=== PATIENT | female | born 1975 | race Caucasian/White ===

== ENCOUNTER → 2016-10-06 | Outpatient (CLI) | payer BC ==
[~2016-10-06] MED LIST: CETI10TA84 PO; CHOL100010 PO; CYAN10005 PO; DILT120C PO
[2016-10-06 12:26] LABS: BASO % 0.2 %; BASO ABS # 0.02 K/uL (0-0.2); COMPLETE YES; EOS % 4.3 %; IG% 0.2 %; LYMPH % 14.7 %; LYMPH ABS # 1.24 K/uL (1.2-3.4); MEAN CELL VOLUME 87.7 fL (80-100); MEAN CORPUSCULAR HGB CONC 34.3 g/dl (32-36); MEAN PLATELET VOLUME 9.4 fL (7.4-10.4); MONO % 5.9 %; NEUT % 74.7 %; PLATELET COUNT 420 K/uL (130-400); RED BLOOD COUNT 4.56 M/uL (4.2-5.4); WHITE BLOOD COUNT 8.42 K/uL (4.8-10.8)
[2016-10-06 12:44] LABS: ALT/SGPT 19 U/L (12-78); BLOOD UREA NITROGEN 7 mg/dl (7-18); BUN/CREATININE RATIO 11.6 (10-20); CALCIUM 8.8 mg/dl (8.5-10.1); CARBON DIOXIDE 26 mmol/L (21-32); CHLORIDE 105 mmol/L (98-107); CHOLESTEROL 167 mg/dl (0-200); CREATININE 0.63 mg/dl (0.60-1.20); GLUCOSE 89 mg/dl (70-99); POTASSIUM 3.7 mmol/L (3.5-5.1); SODIUM 139 mmol/L (136-145); TRIGLYCERIDES 204 mg/dl (0-150); VERY LOW DENSITY LIPOPROT CALC 41 mg/dl
[2016-10-06 12:54] LABS: ALKALINE PHOSPHATASE 91 U/L (45-117); AST/SGOT 15 U/L (15-37); CHOLESTEROL/HDL RATIO 5.4; HDL CHOLESTEROL 31 mg/dl; LDL CHOLESTEROL CALCULATED 95 mg/dl
--- NOTE | 2016-10-13 09:09 | CODING QUERY MEDICAL NECESSITY ---
CQSUPPORTING DIAGNOSIS NEEDED A supporting diagnosis is required for the test/procedure performed on this patient in order for us to be reimbursed by the patient's insurance. Please provide a supporting diagnosis for the following test/procedure listed below next to the test name along with your signature. *If there is no additional diagnosis for this patient that would support the following test/procedure please document that below next to the test/procedure. Test(s)/Procedure(s) that require a supporting diagnosis: DOS 10/06/16 VITAMIN D TEST VITAMIN B12 TEST Provider Signature: Date: Thank you Aletha Nelson Health Information Management Once completed, please kindly fax back to [phone] For questions please call [phone]
== END | disposition home or self-care (01) ==
LOC: C.LABPBG 07:35
PROVIDERS: ATTEND Neuromusculoskeletal Medicine & OMM
DX: Z00.00 Encounter for general adult medical examination without abnormal findings (principal); E55.9 Vitamin D deficiency, unspecified; E53.8 Deficiency of other specified B group vitamins

== ENCOUNTER → 2016-11-29 | Outpatient (CLI) | payer BC ==
--- NOTE | 2016-11-30 08:29 | MAMMOGRAPHY REPORT ---
BILATERAL DIGITAL SCREENING MAMMOGRAM TOMOSYNTHESIS WITH CAD: 11/29/2016 CLINICAL HISTORY: Routine screening. Patient has no complaints. TECHNIQUE: Breast tomosynthesis in addition to standard 2D mammography was performed. Current study was also evaluated with a Computer Aided Detection (CAD) system. COMPARISON: Comparison is made to exams dated: 11/25/2015 mammogram, 10/08/2014 mammogram - [facility], 04/09/2012 mammogram, and 08/09/2013 mammogram - [facility]. BREAST COMPOSITION: There are scattered areas of fibroglandular density in both breasts. Mild invo lutional changes since the 2012 mammograms. FINDINGS: No new suspicious mass, architectural distortion or cluster of suspicious microcalcificat ions is seen. IMPRESSION: ACR BI-RADS CATEGORY 1: NEGATIVE There is no mammographic evidence of malignancy. A 1 year screening mammogram is recommended. The p atient will receive written notification of the results. Approximately 10% of breast cancers are not detected with mammography. A negative mammographic repor t should not delay biopsy if a clinically suggestive mass is present. Ying Singer M.D. ay/:11/29/2016 17:51:39 [place] [employer] Net: Jenna LINDER(Gali)(Suraj), [facility] letter sent: Normal 1/2 BI-RADS Code: ACR BI-RADS Category 1: Negative
== END | disposition home or self-care (01) ==
LOC: C.MAMM 16:14
PROVIDERS: ATTEND Neuromusculoskeletal Medicine & OMM
DX: Z12.31 Encounter for screening mammogram for malignant neoplasm of breast (principal)

== ENCOUNTER → 2017-08-17 | Outpatient (CLI) | payer BC ==
--- NOTE | 2017-08-18 08:19 | Myocardial Perfusion Study ---
Myocardial Perfusion Study Rpt Myocardial Perfusion Study Rpt Date of Service 08/17/2017 Myocardial Perfusion Study Rpt Procedure: 1. Myocardial perfusion study performed in multiple views/images 2. Exercise stress ECG Indications: 1. Chest heaviness and left arm pain Consent: Consent was obtained prior to the procedure. Ordering physician: Dr. De Leon Procedural details: For the stress portion of the study, 32.9 mCi of technetium 99m Cardiolite, injected at 11:45 a.m. on 08/17/2017. 15 minutes following the injection, imaging of the heart was performed in multiple projections. For the rest portion of the study, 11 mCi technetium 99m Cardiolite was injected intravenously at 9:35 a.m. on 08/17/2017. 1 hour following the injection, imaging of the heart was performed in the same projections. Exercise treadmill ECG: Patient exercised via standard Luis A protocol for a total of 9 minutes, completing stage 3. 10 METS. Resting ECG demonstrated: NSR at 63 bpm Maximum heart rate: 150 bpm Resting blood pressure: 140/90 mmHg Maximum blood pressure: 170/90 mmHg Maximal, age-predicted heart rate: 85 % Significant ST changes: None Arrhythmia: No arrhythmia. PVCs noted. Symptoms: Left arm tingling during exercise and into recovery. No chest pain. Findings: Rotating raw imaging demonstrated no significant lung uptake. There is no significant motion artifact. Heart size appeared small to normal. Myocardial perfusion was normal without significant fixed or reversible defects to suggest infarct or ischemia. Ejection fraction: 78 % Wall motion: Normal No significant transient ischemic dilation. Impression: 1. Normal myocardial perfusion study without significant ischemia or infarct suggested. 2. Negative exercise ECG for ischemia at 85% MPHR. 3. Left arm tingling. No chest pain. 4. Hyperdynamic left ventricular systolic function with an EF of 78% and normal wall motion. 5. Appropriate blood pressure response to exercise. 6. No arrhythmia. 7. Good exercise tolerance.
== END | disposition home or self-care (01) ==
LOC: C.NUCL 08-11 09:10
DX: M79.603 Pain in arm, unspecified (principal)

== ENCOUNTER 2017-10-09 01:02 | Emergency (ER) | payer BC ==
[~2017-10-09] VITALS: Ht 165.1 cm; Wt 85.8 kg
[~2017-10-09 01:02] MED LIST changes: +DILT-213 PO; -DILT120C PO
[2017-10-09 01:06] VITALS: TEMP 37; Ht 165.1 cm; Wt 85.8 kg
[2017-10-09] MEDS ORDERED: ALBUT/IPRATROP 3MG/0.5MG NEB 3 ML VIAL INH STA (01:20)
[2017-10-09] MEDS ORDERED: DiphenhydrAMINE HCL 50 MG/ML VIAL IM STA (01:20)
--- NOTE | 2017-10-09 01:27 | EMERGENCY ROOM VISIT NOTE ---
History Report prepared by Ruthy: Reed Jacome Under the Supervision of: Dr. Angelina Perales D.O. First contact with patient: 01:10 Chief Complaint: ALLERGIC REACTION Stated Complaint: ALLERGIC REACTION History of Present Illness The patient is a 42 year old female who presents to the Emergency Room with complaints of a persistent cough beginning tonight. Per , the patient visited her [id number] two weeks ago and developed similar SOB and a cough. He notes that his sister has many animals in her house which may have caused the patient's symptoms. He reports that the patient's daughter may have worn the same clothes that she did two weeks ago around the animals and that there might still be animal dander on her jeans that would cause the patient's symptoms to come back. The patient states that she used a nebulizer two weeks ago with relief of her symptoms. She notes that she took children's Benadryl today with no relief of her symptoms. The patient denies having any abdominal pain, leg pain, and leg swelling. Source of History: patient Onset: tonight Position: other (lungs) Quality: other (cough) Timing: other (persistent) Modifying Factors (Relieving): other (Nebulizer) Associated Symptoms: + SOB, No abdominal pain Note: She denies any leg pain and leg swelling. Review of Systems See HPI for pertinent positives & negatives. A total of 10 systems reviewed and were otherwise negative. Past Medical & Surgical Medical Problems: (1) Chest pain (2) Near syncope (3) No significant medical problems Family History FHx: cancer FHx: heart disease Hypertension Kidney disease Kidney stones Social History Smoking Status: Never Smoker Alcohol Use: none Drug Use: none Marital Status: Housing Status: lives with family Occupation Status: employed Current/Historical Medications Scheduled Cetirizine (Zyrtec), 10 MG PO DAILY Nebivolol Hcl (Bystolic), 10 MG PO DAILY Nebivolol Hcl (Bystolic), 5 MG PO DAILY Allergies Coded Allergies: Amoxicillin (Verified Allergy, Unknown, hives, 10/09/17) Codeine (Verified Adverse Reaction, Unknown, nausea, 10/09/17) Erythromycin (Verified Adverse Reaction, Unknown, VOMITTING, 10/09/17) Physical Exam Vital Signs Date Time Temp Pulse Resp B/P (MAP) Pulse Ox O2 Delivery O2 Flow Rate FiO2 10/09/17 02:26 88 16 123/87 98 10/09/17 01:12 98 Room Air 10/09/17 01:06 37.0 96 24 145/91 99 Room Air Physical Exam General: Coughing. HEENT: Head - normocephalic and atraumatic Pupils are equal, round, and reactive to light. Extraocular eye muscles are intact, and sclera are anicteric. Nose - moist nasal mucosa without discharge. Mouth - moist buccal mucosa. Oropharynx is nonerythematous and there is no tonsillar exudate or edema noted. Neck: Supple; no JVD, nuchal rigidity, cervical lymphadenopathy. Heart: Regular rate and rhythm. There is a normal S1 and S2 with no murmurs, clicks, or gallops appreciated. Lungs: Clear to auscultation bilaterally with no rales or rhonchi. Expiratory wheeze noted. Abdomen: Soft, completely nontender, nondistended, with good bowel sounds. There are no palpable pulsatile masses or hepatosplenomegaly. There is no guarding, rigidity, or rebound noted. Extremities: No evidence of cyanosis, clubbing, or edema. There are easily palpable peripheral pulses. Skin: warm and dry with good turgor and no rashes. Medical Decision & Procedures Medications Administered Medications (Trade) Dose Ordered Sig/Ryan Route Start Time Stop Time Status Last Admin Dose Admin Diphenhydramine HCl (Benadryl Inj) 25 mg NOW STAT IM 10/09/17 01:20 10/09/17 01:22 DC 10/09/17 01:26 25 MG Albuterol/ Ipratropium (Duoneb) 3 ml NOW STAT INH 10/09/17 01:20 10/09/17 01:22 DC 10/09/17 01:26 3 ML Albuterol (Ventolin Hfa Inhaler) 2 puffs NOW ONCE INH 10/09/17 02:30 10/09/17 02:31 DC 10/09/17 02:26 2 PUFFS Procedure 0120: Duoneb 3ml INH, Benadryl Inj 25mg IM 0230: Albuterol 2 puffs INH ED Course 0115: Past medical records reviewed. The patient was evaluated in room B11. A complete history and physical exam was performed. 0120: Duoneb 3ml INH, Benadryl Inj 25mg IM 0212: I reevaluated and updated the patient. Her symptoms are resolved. 0227: Upon reevaluation, the patient is stable. I discussed findings and results with her. She verbalized agreement of the treatment plan. The patient was discharged home. 0230: Albuterol 2 puffs INH Medical Decision The patient is a 42 year old female who presents to the Emergency Room with complaints of a persistent cough beginning tonight. Differential diagnoses include: allergic reaction, asthma exacerbation, anaphylaxis, and bronchitis. The patient states that her presentation tonight is very similar to what happened 2 weeks ago when she was exposed to animals and her relatives house. She was given a DuoNeb treatment here in the emergency department with complete resolution of her symptoms. She was given an albuterol inhaler. She has follow -up scheduled this week with her PCP. Medication Reconcilliation Current Medication List: was personally reviewed by me Blood Pressure Screening Patient's blood pressure: Normal blood pressure Blood pressure disposition: Did not require urgent referral Impression Primary Impression: Allergic reaction Scribe Attestation The scribe's documentation has been prepared under my direction and personally reviewed by me in its entirety. I confirm that the note above accurately reflects all work, treatment, procedures, and medical decision making performed by me. Departure Information Dispostion Home / Self-Care Referrals Donna Gomez DO (PCP) Forms HOME CARE DOCUMENTATION FORM, IMPORTANT VISIT INFORMATION Patient Instructions My [facility] Additional Instructions rest. Inhaler - 2 puffs every 4 hours as needed for a similar reaction Return to the ER if symptoms worsen. Problem Qualifiers Primary Impression: Allergic reaction Encounter type: initial encounter Qualified Codes: T78.40XA - Allergy, unspecified, initial encounter
[2017-10-09] MEDS ORDERED: NEBI10TA2 PO (02:06)
[2017-10-09] MEDS ORDERED: BYS/5 PO (02:06)
[2017-10-09 02:26] VITALS: BP 123/87; PULSE 88; O2SAT 98
[2017-10-09] MEDS ORDERED: ALBUTEROL HFA 8 GM INHALER INH ONE (02:30)
== END 2017-10-09 02:27 | disposition home or self-care (01) ==
LOC: C.EDB 01:03
DX: T78.40XA Allergy, unspecified, initial encounter (principal); X58.XXXA Exposure to other specified factors, initial encounter; Z88.1 Allergy status to other antibiotic agents; Z88.6 Allergy status to analgesic agent; Z88.5 Allergy status to narcotic agent; Z80.9 Family history of malignant neoplasm, unspecified; Z82.49 Family history of ischemic heart disease and other diseases of the circulatory system; Z84.1 Family history of disorders of kidney and ureter

== ENCOUNTER → 2017-11-30 | Outpatient (CLI) | payer BC ==
[~2017-11-30] MED LIST changes: +BYS/5 PO; -CHOL100010 PO; -CYAN10005 PO; -DILT-213 PO; +NEBI10TA2 PO
--- NOTE | 2017-12-01 14:19 | MAMMOGRAPHY REPORT ---
BILATERAL DIGITAL SCREENING MAMMOGRAM TOMOSYNTHESIS WITH CAD: 11/30/2017 CLINICAL HISTORY: Routine screening. Patient has no complaints. TECHNIQUE: Breast tomosynthesis in addition to standard 2D mammography was performed. Current study was also evaluated with a Computer Aided Detection (CAD) system. COMPARISON: Comparison is made to exams dated: 11/29/2016 mammogram, 11/25/2015 mammogram, 10/08/2014 ma mmogram, 08/09/2013 mammogram - [facility], and 04/09/2012 mammogram. BREAST COMPOSITION: There are scattered areas of fibroglandular density in both breasts. FINDINGS: No suspicious masses, calcifications, or areas of architectural distortion are noted in ei ther breast. There has been no significant interval change compared to prior exams. Focal asymmetry in the left upper outer quadrant posteriorly is stable compared to multiple prior exams. A few scatt ered bilateral benign-appearing calcifications are not significantly changed. IMPRESSION: ACR BI-RADS CATEGORY 2: BENIGN There is no mammographic evidence of malignancy. A 1 year screening mammogram is recommended. The pa tient will receive written notification of the results. Approximately 10% of breast cancers are not detected with mammography. A negative mammographic report should not delay biopsy if a clinically suggestive mass is present. Astrid Ferrera M.D. /:11/30/2017 12:44:42 Foil Spooler: Jenna Blanco [facility] letter sent: Normal 1/2 BI-RADS Code: ACR BI-RADS Category 2: Benign
== END | disposition home or self-care (01) ==
LOC: C.MAMM 08:58
PROVIDERS: ATTEND Internal Medicine
DX: Z12.31 Encounter for screening mammogram for malignant neoplasm of breast (principal)